=== PATIENT | male | born 1975 | race Caucasian/White ===

== ENCOUNTER 2016-07-20 21:38 | Emergency (ER) | payer OTHER ==
[~2016-07-20] VITALS: Ht 180.3 cm; Wt 100.0 kg
[~2016-07-20 21:38] MED LIST: GABA300S PO; LORA1TAB PO; TOPI50TA2 PO; VNL75T PO
[2016-07-20 21:44] VITALS: BP 122/76; PULSE 79; RESP 19; O2SAT 96
--- NOTE | 2016-07-20 22:07 | ED.REPORT ---
HPI-General Illness Date of Service Jul 20, 2016 ED Provider: Dr. Galo Mckeon M.D. A 41 year old male with a history of seizure disorder and Asperger's presents to the ED via EMS with ataxia onset just prior to arrival. Associated symptoms include darting vision and anxiety. Just before onset the patient titrated up his Lamictal. EMS found him with a blood pressure of 176/95 and otherwise normal vital signs. The patient denies loss of consciousness, vomiting, nausea, diarrhea, shortness of breath, or chest pain. His last seizure was one week ago. Nursing Notes Stated Complaint: MEDS REACTION Chief Complaint: General Complaint Nursing Notes Reviewed: Yes Allergies: Coded Allergies: No Known Allergies (Unverified Allergy, Unknown, 03/15/16) Scheduled Venlafaxine-Expunged Drug, Do Not Renew! (Effexor-Expunged Drug, Do Not Renew!) 75 Mg Tablet 75 MG PO 1-2XD Scheduled PRN Lorazepam (Lorazepam) 1 Mg Tablet 1 MG PO prn PRN PRN For Seizure Miscellaneous Medications Gabapentin-Expunged Drug, Do Not Renew! (Gabapentin-Expunged Drug, Do Not Renew! ) 300 Mg/6 Ml Solution 300 MG PO Topiramate-Expunged Drug, Do Not Renew! (Topiramate-Expunged Drug, Do Not Renew! ) 50 Mg Tablet 150 MG PO General Time Seen by MD: 22:06 Chief Complaint Other (Ataxia) Hx Obtained From: Patient Arrived By: Ambulance Sudden in Onset?: No Onset Occurred: Just prior to arrival Symptom Duration: Since onset Severity: Current: No pain currently Severity: Maximum: No pain Associated with: Reports: Chest pain, Denies: Fever, Loss of consciousness, Shortness of breath Pertinent Negative: Relieved by nothing Context Related History: Reports Seizure disorder Recent Healthcare: No recent doctor visit Past Medical History Past Medical History Notes: Neurologist: Dr. Tirado 03/15/16 Meds: Keppra 750 mg extended release BID Lamictal 200 mg BID Past Medical History Seizure disorder dx at age 15 - on Keppra and Lamictal Asperger's Past Surgical History Inguinal hernia repair Smoking History Former Smoker Social History Alcohol Use: "Social" Drug Use: Denies drug use Ambulatory Status Independent Review of Systems + Ataxia, darting vision Full Review of Systems Constitutional: Denies: Fever Respiratory: Denies: Shortness of breath Cardiovascular: Denies: Chest pain GI: Denies: Diarrhea, Nausea, Vomiting Neurologic: Denies: Change LOC Psychiatric: Reports: Anxiety Complete sys rev & neg: except as marked. Physical Exam Vital Signs Vital Signs Date Time Temp Pulse Resp B/P Pulse Ox O2 Delivery O2 Flow Rate FiO2 07/21/16 00:32 37.1 75 13 118/60 98 Room Air 07/20/16 23:35 64 12 105/65 97 Room Air 07/20/16 21:44 36.8 79 19 122/76 96 Room Air Initial VS: Reviewed ENT: Conjunctiva normal, No scleral icterus Respiratory: Breath sounds normal, Clear to auscultation, No respiratory distress Cardiovascular: Regular rate & rhythm, Heart sounds normal Abdomen / GI: Soft, Non-tender Skin: Warm, Dry, No cyanosis Psychiatric: Mood/affect normal, Behavior normal, Normal thought content General/Constitutional: Awake, Alert Head / Eyes: Atraumatic, Normocephalic, No nystagmus Neurologic: Oriented X3, No motor deficits, No sensory deficits, CN II - XII intact Speech: Positive: Stuttering (Baseline) Interpretation & Diagnostics Lab Results Interpretation Result Diagram: 07/20/164 07/20/16 2254 Test 07/20/16 22:54 White Blood Count 10.7th/mm3 (3.8-10.1) Red Blood Count 4.75mil/mm3 (4.40-5.80) Hemoglobin 14.3g/dL (13.8-17.2) Hematocrit 41.9% (41.0-50.0) Mean Corpuscular Volume 88.2fL (81-100) Mean Corpuscular Hemoglobin 30.1pg (27.0-35.0) Mean Corpuscular Hemoglobin Concent 34.1% (32.0-37.0) Red Cell Distribution Width 12.3% (12.3-15.4) Platelet Count 254bil/L (150-400) Neutrophils (%) (Auto) 68.7% (40-74) Lymphocytes (%) (Auto) 20.1% (14-46) Monocytes (%) (Auto) 9.6% (4-12) Eosinophils (%) (Auto) 0.8% (0-5) Basophils (%) (Auto) 0.3% (0-3) Sodium Level 140mEq/L (134-144) Potassium Level 3.7mEq/L (3.5-5.2) Chloride Level 102mEq/L (97-108) Carbon Dioxide Level 26mmol/L (18-29) Blood Urea Nitrogen 15mg/dL (6-24) Creatinine 1.49mg/dL (0.76-1.27) Estimat Glomerular Filtration Rate 55mL/min (>59) Glucose Level 94mg/dL (60-99) Calcium Level 9.0mg/dL (8.5-10.1) Total Bilirubin 0.2mg/dL (0.0-1.2) Aspartate Amino Transf (AST/SGOT) 15U/L (0-50) Alanine Aminotransferase (ALT/SGPT) 15U/L (0-44) Alkaline Phosphatase 80U/L (25-150) Total Protein 6.7g/dL (6.4-8.4) Albumin 4.3g/dL (3.4-5.0) Re-Eval/Medical Decision Med Decision/Clinical Course 41-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 He is mildly dizzy and improving over time. He is discharged in stable condition. Drug levels of Lamictal and Keppra are pending for his physician. Source of Hx: Old records Time of Eval: 00:07 Patient Status: Condition improved Re-Evaluation/Progress Note: Patient is feeling better but still reports mild visual "wobbling" and lightheadedness. Discussed with patient lab results, diagnosis, and plan for discharge. Follow-up and return to the ER instructions given. Patient agrees with plan for care and all questions were addressed. Counseled Regarding: Diagnosis, Lab results, Need for follow-up, When/why to return to ED Discharge & Departure Shift Change Sign-Out Response to Therapy: Improved Primary Impression: Accidental overdose of anticonvulsant Encounter type: initial encounter Qualified Code: T42.71XA - Poisoning by unspecified antiepileptic and sedative-hypnotic drugs, accidental (unintentional ), initial encounter Disposition: Home Discharge Condition All VS Reviewed: Yes Condition: Stable Patient Instructions: Lamotrigine (By mouth), Levetiracetam (By mouth) Additional Instructions: Take your meds as prescribed. Follow-up with your doctor. Your med levels will be available tomorrow for your doctor's use. Return for any immediate issues. Referrals: Walter Hernandez ND (PCP) Kennyibjohnny Attestation Portions of this note were transcribed by Adrianne Malone. I, Dr. Mckeon, personally performed the history, physical exam, and medical decision-making; I reviewed and confirmed the accuracy of the information in the transcribed note. Signed by: Indigo Pires, 07/21/2016, 01:43 copies to: Walter Hernandez ND, Christopher W MD Jul 20, 2016 22:07 ADRIANNE MALONE Jul 20, 2016 22:17
[2016-07-20] MEDS ORDERED: 0.9% Sodium Chloride 1,000 ML IV ONE (22:39)
[2016-07-20 23:18] LABS: Mean Corpuscular Hemoglobin 30.1 pg (27.0-35.0); Mean Corpuscular Volume 88.2 fL (81-100)
[2016-07-20 23:19] LABS: BASOPHILS % (AUTO) 0.3 % (0-3); EOSINOPHILS % (AUTO) 0.8 % (0-5); MONOCYTES % (AUTO) 9.6 % (4-12); NEUTROPHILS % (AUTO) 68.7 % (40-74); Platelet Count 254 bil/L (150-400)
[2016-07-20 23:35] VITALS: BP 105/65; PULSE 64; RESP 12; O2SAT 97
[2016-07-21 00:32] VITALS: BP 118/60; PULSE 75; RESP 13; O2SAT 98
[2016-07-23 13:09] LABS: Lamotrigine (Lamictal) 14.2 ug/mL (2.0-20.0); Levetiracetam (Keppra) 23.5 ug/mL (10.0-40.0)
== END 2016-07-21 00:27 | disposition home or self-care (01) ==
LOC: SED 21:38 → EDBD 21:38 → SED 07-21 00:27
DX: R27.0 Ataxia, unspecified (principal); T42.6X1A Poisoning by other antiepileptic and sedative-hypnotic drugs, accidental (unintentional), initial encounter; X58.XXXA Exposure to other specified factors, initial encounter; Y92.9 Unspecified place or not applicable; Y93.89 Activity, other specified; Y99.8 Other external cause status; G40.909 Epilepsy, unspecified, not intractable, without status epilepticus; F84.5 Asperger's syndrome; Z87.891 Personal history of nicotine dependence
CPT/HCPCS: 36415; 80053; 80299; 82542; 85025; 96360; 99284; J7030